=== PATIENT | female | born 1990 | race Two or more races ===

== ENCOUNTER 2017-04-09 18:57 | Emergency (ER) | payer OTHER ==
[~2017-04-09 18:57] MED LIST: DOC-Q-LACE100 MG; FLOMAX0.4 M1; IBUPROFEN800 MG; KEFLEX500 MG PO; MACROBID100 MG PO; PERCOCET 5/321 UDTAB; PHENERGAN25 MG; PROBIOTIC1 EACH; PYRIDIUM PO; TYLOX 5-500 CA1 EACH; [UNRECOGNIZED DRUG - OTHER]
[2017-04-09] MEDS ORDERED: CITRANATAL B-C1 EAC1 (19:05)
[2017-04-09] MEDS ORDERED: ZANTAC (19:05)
[2017-04-09 19:37] LABS: BASOPHIL# 0.1 X10e3 (0-0.3); EOSINOPHIL# 0.1 X10e3 (0-0.7); EOSINOPHIL% 0.9 % (0.0-7.0); HEMATOCRIT 35.3 % (35.0-45.0); LYMPHOCYTE# 2.8 X10e3 (1.0-3.5); LYMPHOCYTE% 23.4 % (17.0-45.0); MEAN CELL VOLUME 86.7 FL (83-96); MEAN CORPUSCULAR HEMOGLOBIN 29.4 PG (28-34); MEAN CORPUSCULAR HGB CONC 33.9 g/dL (30-36); MEAN PLATELET VOLUME 7.6 FL (6.5-11.5); MONOCYTE# 0.8 X10e3 (0-1.0); MONOCYTE% 7.2 % (3.0-12.0); NEUTROPHIL% 67.5 % (40-75); PLATELET COUNT 261 X10e3 (140-420); RED BLOOD COUNT 4.07 X10e (3.90-5.30); RED CELL DISTRIBUTION WIDTH 14.5 % (11.0-15.5); URINE SOURCE CLEAN CATCH; WHITE BLOOD COUNT 11.9 X10e3 (4.0-10.5)
[2017-04-09 19:38] LABS: DIFF IND NO
[2017-04-09 19:39] LABS: URINE APPEARANCE HAZY; URINE BILIRUBIN NEG (NEG); URINE BLOOD 3+ (NEG); URINE COLOR YELLOW; URINE GLUCOSE NEG (NORM); URINE KETONE NEG (NEG); URINE LEUKOCYTE ESTERASE 3+ (NEG); URINE NITRATE NEG (NEG); URINE PH 6.5 (5-8); URINE PROTEIN NEG (NEG); URINE UROBILINOGEN 0.2 MG/DL (NORM)
[2017-04-09 19:48] LABS: MICRO INDICATED? YES
[2017-04-09 19:50] LABS: CULTURE INDICATED? YES; URINE BACTERIA 1+ (NEG); URINE RBC 50-100 /[HPF] (0-2); URINE SQUAMOUS EPITHELIAL CELL MANY /[HPF]; URINE TRANSITIONAL EPI CELLS FEW /[HPF]
[2017-04-09 19:51] LABS: URINE AMORPHOUS SEDIMENT AMORP URATES; URINE CRYSTALS CALCIUM OXALATE /[HPF]; URINE MUCUS PRESENT
[2017-04-09 19:54] LABS: CALCIUM SERUM 8.8 mg/dL (8.4-10.2); CREATININE SERUM 0.5 mg/dL (0.6-1.4); GLOM FILT RATE Estimated 134.5 mL/min (>60); POTASSIUM 3.1 mmol/L (3.5-5.1)
[2017-04-09 20:21] LABS: URINE SOURCE CATH
[2017-04-09 20:24] LABS: URINE APPEARANCE CLEAR; URINE BILIRUBIN NEG (NEG); URINE BLOOD 3+ (NEG); URINE COLOR YELLOW; URINE GLUCOSE NEG (NORM); URINE KETONE NEG (NEG); URINE LEUKOCYTE ESTERASE TRACE (NEG); URINE NITRATE NEG (NEG); URINE PROTEIN NEG (NEG)
[2017-04-09 20:32] LABS: MICRO INDICATED? YES
[2017-04-09 20:33] LABS: CULTURE INDICATED? YES; URINE BACTERIA NEG (NEG); URINE CRYSTALS CALCIUM OXALATE /[HPF]; URINE MUCUS PRESENT; URINE RBC 100-200 /[HPF] (0-2); URINE SQUAMOUS EPITHELIAL CELL OCCAS /[HPF]; URINE TRANSITIONAL EPI CELLS FEW /[HPF]
[2017-04-09 20:34] LABS: URINE AMORPHOUS SEDIMENT AMORP URATES
== END 2017-04-09 20:53 | disposition home or self-care (01) ==
LOC: SED 18:57
PROVIDERS: Emergency Medicine
DX: O99.89 Other specified diseases and conditions complicating pregnancy, childbirth and the puerperium (principal); N20.1 Calculus of ureter; O99.282 Endocrine, nutritional and metabolic diseases complicating pregnancy, second trimester; E87.6 Hypokalemia; O99.342 Other mental disorders complicating pregnancy, second trimester; F32.9 Major depressive disorder, single episode, unspecified; O99.612 Diseases of the digestive system complicating pregnancy, second trimester; K21.9 Gastro-esophageal reflux disease without esophagitis; O99.512 Diseases of the respiratory system complicating pregnancy, second trimester; J45.909 Unspecified asthma, uncomplicated; O99.332 Smoking (tobacco) complicating pregnancy, second trimester; F17.200 Nicotine dependence, unspecified, uncomplicated; Z3A.23 23 weeks gestation of pregnancy
CPT/HCPCS: 36415; 51701; 80048; 81003; 85025; 87086; 99284